=== PATIENT | female | born 1985 | race Caucasian/White ===

== ENCOUNTER 2018-02-04 15:17 | Inpatient (IN) | payer BC ==
[2018-02-04] MEDS ORDERED: Sodium Chloride 0.9% 1,000 ML IV ONE (15:20)
--- NOTE | 2018-02-04 15:33 | C.PDOC ---
History Of Present Illness 32 year old female with PMHx of bipolar disorder is brought to the ED by Dr. Mahoney from the Psychiatry office across the street. As per patient, she took a handful of digoxin and klonopin. Denies any SI/HI. Time Seen by Provider: 02/04/18 15:30 Chief Complaint (Nursing): Substance Abuse History Per: Patient History/Exam Limitations: no limitations Onset/Duration Of Symptoms: Mins Current Symptoms Are (Timing): Still Present Suicide/Self Injury Attempted (Context): None Modifying Factor(s): Other (Klonopin, digoxin ) Associated Symptoms: denies: Suicidal Thoughts, Suicidal Plan Past Medical History Reviewed: Historical Data, Nursing Documentation, Vital Signs Vital Signs: Last Vital Signs Temp 98.4 F 02/04/18 15:28 Pulse 142 H 02/04/18 15:28 Resp 22 02/04/18 15:28 BP 130/47 L 02/04/18 15:28 Pulse Ox 93 L 02/04/18 15:28 - Medical History PMH: Bipolar Disorder Surgical History: No Surg Hx Family History: States: No Known Family Hx - Social History Hx Alcohol Use: No Hx Substance Use: No - Immunization History Hx Tetanus Toxoid Vaccination: No Hx Influenza Vaccination: No Hx Pneumococcal Vaccination: No Review Of Systems Except As Marked, All Systems Reviewed And Found Negative. Constitutional: Positive for: Other (overdose). Negative for: Fever Cardiovascular: Negative for: Chest Pain Respiratory: Negative for: Shortness of Breath Gastrointestinal: Negative for: Nausea, Vomiting, Abdominal Pain, Diarrhea Psych: Negative for: Suicidal ideation Physical Exam - Physical Exam Appears: Non-toxic, Other (verbally abusive with ED staff, aggressive, bizarre affect ) Skin: Warm, Dry, No Rash Head: Normacephalic Eye(s): bilateral: Normal Inspection Cardiovascular: Rhythm Regular, Other (Tachycardic) Respiratory: Normal Breath Sounds, No Rales, No Rhonchi, No Wheezing Gastrointestinal/Abdominal: Soft, No Tenderness Extremity: Bilateral: Atraumatic, Normal Color And Temperature, Normal ROM Neurological/Psych: Other (awake, alert, oriented) Gait: Steady ED Course And Treatment - Laboratory Results Result Diagrams: 02/04/18 15:43 02/04/18 15:43 O2 Sat by Pulse Oximetry: 95 (RA) Pulse Ox Interpretation: Normal - Other Rad CXR X-Ray: Viewed By Me, Read By Radiologist Interpretation: IMPRESSION: Hypoinflation. No focal consolidation. Disposition - Disposition Forms: [facility] (Czech) - Scribe Statement The provider has reviewed the documentation as recorded by the Scribe Jerica Rodriguez All medical record entries made by the Scribe were at my direction and person ally dictated by me. I have reviewed the chart and agree that the record accurately reflects my personal performance of the history, physical exam, medical decision making, and the department course for this patient. I have also personally directed, reviewed, and agree with the discharge instructions and disposition.
[2018-02-04 15:49] LABS: BASO % 0.5 % (0.0-2.0); EOS # 0.3 K/uL (0.0-0.7); EOS % 3.7 % (0.0-4.0); HEMOGLOBIN 12.2 g/dL (11.0-16.0); LYMPH # 2.4 K/uL (1.0-4.3); LYMPH % 28.6 % (20.0-40.0); MEAN CORPUSCULAR HEMOGLOBIN 28.5 pg (27.0-31.0); MEAN CORPUSCULAR HGB CONC 33.5 g/dL (33.0-37.0); MEAN PLATELET VOLUME 8.5 fL (7.2-11.7); MONO # 0.6 K/uL (0.0-0.8); MONO % 7.7 % (0.0-10.0); NEUT # 4.9 K/uL (1.8-7.0); NEUT % 59.5 % (50.0-75.0); NRBC % 0.1 % (0.0-2.0); RBC 4.28 Mil/uL (3.80-5.20); RED CELL DISTRIBUTION WIDTH 13.5 % (11.5-14.5); WHITE BLOOD COUNT 8.3 K/uL (4.8-10.8)
[2018-02-04] MEDS ORDERED: Sodium Chloride 0.9% 1,000 ML ONE (15:59)
[2018-02-04 16:06] LABS: ALB/GLOB RATIO 1.4 (1.0-2.1); ALBUMIN 4.5 g/dL (3.5-5.0); ALT/SGPT 29 U/L (9-52); AST/SGOT 46 U/L (14-36); BLOOD UREA NITROGEN 4 mg/dL (7-17); CALCIUM 9.6 mg/dl (8.6-10.4); GFR NON-AFRICAN AMERICAN > 60
--- NOTE | 2018-02-04 16:08 | RAD ---
HISTORY: SOB COMPARISON: None available. TECHNIQUE: Chest, one view. FINDINGS: Examination limited by habitus and hypoinflation. LUNGS: No focal consolidation. Please note that chest x-ray has limited sensitivity for the detection of pulmonary masses. PLEURA: No significant pleural effusion identified. No definite pneumothorax . CARDIOVASCULAR: The cardiomediastinal silhouette appears within normal limits of size. No significant atherosclerotic calcification present. OSSEOUS STRUCTURES: No acute osseous abnormality identified. VISUALIZED UPPER ABDOMEN: Unremarkable. OTHER FINDINGS: None. IMPRESSION: Hypoinflation. No focal consolidation.
[2018-02-04 16:18] LABS: B-TYPE NATRIURETIC PEPTIDE 45.2 pg/mL (0-450)
[2018-02-04 16:32] LABS: SQUAMOUS EPITHIAL 4 /hpf (0-5); URINE BILIRUBIN NEGATIVE (NEGATIVE); URINE BLOOD NEGATIVE (NEGATIVE); URINE CLARITY Clear (Clear); URINE COLOR Straw (YELLOW); URINE GLUCOSE (UA) NORMAL (Normal); URINE LEUKOCYTE ESTERASE NEG Leu/uL (Negative); URINE PROTEIN NEGATIVE (NEGATIVE); URINE UROBILINOGEN NORMAL mg/dL (0.2-1.0)
[2018-02-04 16:40] LABS: HCG,QUALITATIVE URINE NEGATIVE (NEGATIVE)
[2018-02-04 17:21] LABS: BARBITURATES, UR NEGATIVE (NEGATIVE); OPIATES, UR NEGATIVE (NEGATIVE); PHENCYCLIDINE, UR NEGATIVE (NEGATIVE)
[2018-02-04 17:28] LABS: BENZODIAZEPINES, UR POSITIVE (NEGATIVE)
--- NOTE | 2018-02-04 19:03 | C.PDOC ---
History Of Present Illness 32 year old female with PMHx of bipolar disorder is brought to the ED by Dr. Mahoney from the Psychiatry office across the street. As per patient, she took a handful of digoxin and klonopin. Denies any SI/HI. Time Seen by Provider: 02/04/18 15:30 Chief Complaint (Nursing): Substance Abuse History Per: Patient History/Exam Limitations: no limitations Onset/Duration Of Symptoms: Hrs Current Symptoms Are (Timing): Still Present Suicide/Self Injury Attempted (Context): None Modifying Factor(s): Other (Digoxin, klonopin ) Associated Symptoms: denies: Suicidal Thoughts, Suicidal Plan Past Medical History Reviewed: Historical Data, Nursing Documentation, Vital Signs Vital Signs: Last Vital Signs Temp 98.4 F 02/04/18 15:28 Pulse 134 H 02/04/18 18:15 Resp 24 02/04/18 18:15 BP 106/78 02/04/18 18:15 Pulse Ox 95 02/04/18 19:00 - Medical History PMH: Bipolar Disorder - Social History Hx Alcohol Use: No Hx Substance Use: No - Immunization History Hx Tetanus Toxoid Vaccination: No Hx Influenza Vaccination: No Hx Pneumococcal Vaccination: No Review Of Systems Except As Marked, All Systems Reviewed And Found Negative. Constitutional: Positive for: Other (overdose). Negative for: Fever, Chills Cardiovascular: Negative for: Chest Pain Respiratory: Negative for: Shortness of Breath Gastrointestinal: Negative for: Nausea, Vomiting, Abdominal Pain, Diarrhea Psych: Negative for: Depression, Suicidal ideation Physical Exam - Physical Exam Additional Physical Exam Comments: Appears: Non-toxic, Other (verbally abusive with ED staff, aggressive, bizarre affect ) Skin: Warm, Dry, No Rash Head: Normacephalic Eye(s): bilateral: Normal Inspection Cardiovascular: Rhythm Regular, Other (Tachycardic) Respiratory: Normal Breath Sounds, No Rales, No Rhonchi, No Wheezing Gastrointestinal/Abdominal: Soft, No Tenderness Extremity: Bilateral: Atraumatic, Normal Color And Temperature, Normal ROM Neurological/Psych: Other (awake, alert, oriented) Gait: Steady ED Course And Treatment - Laboratory Results Result Diagrams: 02/05/18 06:55 02/05/18 06:55 Lab Interpretation: Abnormal (tox + THC/Benzo's (prob Klonopin), Dig level 3.9 (0.2-2.0), VPA 198 H) ECG: Interpreted By Me ECG Rhythm: Sinus Tachycardia Rate From EC (repeat ST 131, no inverted ST to suggest Dig tox ) O2 Sat by Pulse Oximetry: 95 (RA) Pulse Ox Interpretation: Normal - Radiology CXR: Interpreted by Me CXR Interpretation: Yes: No Acute Disease - Other Rad CXR X-Ray: Interpreted by Me (nl) Reevaluation Time: 19:03 Reassessment Condition: Improved (occ nauseated, verbally abusive with staff, throwing items (drink cup) demanding, argumentative) - Physician Consult Information Outcome Of Conversation: 1899: d/w Dr. Valles- Medicine [facility]- ok to adm to ICU. 1899: d/w ICU, Dr. Pardo, ok to admit Critical Care Time - Critical Care Note Total Time (in mins): 90 Documented critical care: time excludes all time spent performing seperately billable procedures. Medical Decision Making Medical Decision Making: Plan - EKG - Bloodwork - IV fluids - 1:1 observation 1899: Mother at bedside intentional Benzo (Klonopin) and Dig (got from elderly family member) with elevated Dig level 3.9 but without bradycardia nor EKG changes c/w toxicity ICU obs. d/w Poison Control- defer Digibind for level <5 and no acute EKG changes/hyperkalemia repeat labs pending 2200 hrs. VPA overdose- supportive care Baseline Bipolar/agressive/personality disorder, worstening as Klonopin is wearing off Ativan IV to avoid w/d tachycardia and seizures Psych Sedate as required Ativan/Geodon to avoid benzo w/d and superimposed tachycardia Consider transfer to [facility] when medically cleared. d/w Dr. Mahoney- pt's outpatient psychiatrist, for further background info PRN Disposition Doctor Will See Patient In The: Hospital Counseled Patient/Family Regarding: Studies Performed, Diagnosis - Disposition Disposition: HOSPITALIZED Disposition Time: 19:06 Condition: GOOD - Clinical Impression Clinical Impression: Benzodiazepine overdose, Digoxin overdose, Suicide attempt - Scribe Statement The provider has reviewed the documentation as recorded by the Scribmichaelle Rodriguez All medical record entries made by the Scribe were at my direction and personally dictated by me. I have reviewed the chart and agree that the record accurately reflects my personal performance of the history, physical exam, medical decision making, and the department course for this patient. I have also personally directed, reviewed, and agree with the discharge instructions and disposition.
--- NOTE | 2018-02-04 20:55 | CP.PCM.CON ---
History of Present Illness - History of Present Illness History of Present Illness: CCM 89 yo female with hx Bipolar /personality disorder sent from Psych office b/o suicdal attempt taking handful digoxin / Valproic acid/ Klonopin. Pt vomited in ED. Denied pain /sob /nausea when seen. Found with elevated Dig level 3.9 and poison control said no digibind. ROS- as noted All- Metoclopramide Social- denied tob/ etoh/ drugs Meds- reviewed FH- Unknown Awake but appears sleepy, responsive Perrl Neck- no jvd lungs- bilat bs Heart-rr aBd- obese, bs+, soft, nontender Ext- no edema, ontender Neuro- nonfocal Labs, EKG's-reviewed A&P s/p Suicide Attempt Mixed OD- Dig / VPA Bipolar Personality Disorder Admit to ICU cont 1:1 observation Hydration maintain optimal lytes repeat dig & VPA levels if agitated -->ativan monitor DVT prophylaxis Psych f/u Critical care time spent 40 min Past Patient History - Past Social History Smoking Status: Never Smoked - PSYCHIATRIC Hx Substance Use: No Meds Allergies/Adverse Reactions: Allergies Allergy/AdvReac Type Severity Reaction Status Date / Time metoclopramide [From Reglan] Allergy Verified 02/04/18 15:28 Results - Vital Signs Recent Vital Signs: Last Vital Signs Temp 98.4 F 02/04/18 15:28 Pulse 134 H 02/04/18 18:15 Resp 24 02/04/18 18:15 BP 106/78 02/04/18 18:15 Pulse Ox 95 02/04/18 19:51 - Labs Result Diagrams: 02/04/18 15:43 02/04/18 15:43 Labs: Laboratory Results - last 24 hr 02/04/18 02/04/18 02/04/18 15:43 15:43 15:43 WBC 8.3 RBC 4.28 Hgb 12.2 Hct 36.4 MCV 85.0 MCH 28.5 MCHC 33.5 RDW 13.5 Plt Count 257 MPV 8.5 Neut % (Auto) 59.5 Lymph % (Auto) 28.6 [place] % (Auto) 7.7 Eos % (Auto) 3.7 Baso % (Auto) 0.5 Neut # (Auto) 4.9 Lymph # (Auto) 2.4 [place] # (Auto) 0.6 Eos # (Auto) 0.3 Baso # (Auto) 0.0 PT 11.0 INR 1.0 APTT 34 Sodium 137 Potassium 4.6 Chloride 98 Carbon Dioxide 23 Anion Gap 21 H BUN 4 L Creatinine 0.6 L Est GFR ( Amer) > 60 Est GFR (Non-Af Amer) > 60 Random Glucose 175 H Calcium 9.6 Total Bilirubin 0.4 AST 46 H ALT 29 Alkaline Phosphatase 81 Ammonia Troponin I 0.0880 NT-Pro-B Natriuret Pep 45.2 Total Protein 7.7 Albumin 4.5 Globulin 3.3 Albumin/Globulin Ratio 1.4 Urine Color Urine Clarity Urine pH Ur Specific [place] Urine Protein Urine Glucose (UA) Urine Ketones Urine Blood Urine Nitrate Urine Bilirubin Urine Urobilinogen Ur Leukocyte Esterase Urine WBC (Auto) Urine RBC (Auto) Ur Squamous Epith Cells Urine HCG, Qual Digoxin Urine Opiates Screen Urine Methadone Screen Ur Barbiturates Screen Valproic Acid Ur Phencyclidine Scrn Ur Amphetamines Screen U Benzodiazepines Scrn U Oth Cocaine Metabols U Cannabinoids Screen Alcohol, Quantitative 02/04/18 02/04/18 02/04/18 15:43 15:43 15:49 WBC RBC Hgb Hct MCV MCH MCHC RDW Plt Count MPV Neut % (Auto) Lymph % (Auto) [place] % (Auto) Eos % (Auto) Baso % (Auto) Neut # (Auto) Lymph # (Auto) [place] # (Auto) Eos # (Auto) Baso # (Auto) PT INR APTT Sodium Potassium Chloride Carbon Dioxide Anion Gap BUN Creatinine Est GFR ( Amer) Est GFR (Non-Af Amer) Random Glucose Calcium Total Bilirubin AST ALT Alkaline Phosphatase Ammonia < 9 L Troponin I NT-Pro-B Natriuret Pep Total Protein Albumin Globulin Albumin/Globulin Ratio Urine Color Urine Clarity Urine pH Ur Specific [place] Urine Protein Urine Glucose (UA) Urine Ketones Urine Blood Urine Nitrate Urine Bilirubin Urine Urobilinogen Ur Leukocyte Esterase Urine WBC (Auto) Urine RBC (Auto) Ur Squamous Epith Cells Urine HCG, Qual Digoxin 3.9 H* Urine Opiates Screen Urine Methadone Screen Ur Barbiturates Screen Valproic Acid Ur Phencyclidine Scrn Ur Amphetamines Screen U Benzodiazepines Scrn U Oth Cocaine Metabols U Cannabinoids Screen Alcohol, Quantitative < 10 02/04/18 02/04/18 02/04/18 15:50 16:17 16:59 WBC RBC Hgb Hct MCV MCH MCHC RDW Plt Count MPV Neut % (Auto) Lymph % (Auto) [place] % (Auto) Eos % (Auto) Baso % (Auto) Neut # (Auto) Lymph # (Auto) [place] # (Auto) Eos # (Auto) Baso # (Auto) PT INR APTT Sodium Potassium Chloride Carbon Dioxide Anion Gap BUN Creatinine Est GFR ( Amer) Est GFR (Non-Af Amer) Random Glucose Calcium Total Bilirubin AST ALT Alkaline Phosphatase Ammonia Troponin I NT-Pro-B Natriuret Pep Total Protein Albumin Globulin Albumin/Globulin Ratio Urine Color Straw Urine Clarity Clear Urine pH 5.0 Ur Specific [place] 1.012 Urine Protein Negative Urine Glucose (UA) Normal Urine Ketones 1+ H Urine Blood Negative Urine Nitrate Negative Urine Bilirubin Negative Urine Urobilinogen Normal Ur Leukocyte Esterase Neg Urine WBC (Auto) < 1 Urine RBC (Auto) 1 Ur Squamous Epith Cells 4 Urine HCG, Qual Negative Digoxin Urine Opiates Screen Negative Urine Methadone Screen Negative Ur Barbiturates Screen Negative Valproic Acid 190.8 H Ur Phencyclidine Scrn Negative Ur Amphetamines Screen Negative U Benzodiazepines Scrn Positive U Oth Cocaine Metabols Negative U Cannabinoids Screen Positive H Alcohol, Quantitative Assessment & Plan (1) Digoxin overdose Status: Acute (2) Suicide attempt Status: Acute (3) Valproic acid toxicity Status: Acute (4) Tachycardia Status: Acute (5) Bipolar 1 disorder Status: Chronic
[2018-02-04] MEDS: Sodium Chloride 0.9% 1,000 ML IV SCH (21:40)
[2018-02-04 22:44] LABS: ACETAMINOPHEN < 10.0 ug/mL (10.0-30.0); SALICYLATE < 1.0 mg/dL 1; VALPROIC ACID 156.4 ug/mL (50.0-100.0)
[2018-02-04 22:45] LABS: BLOOD UREA NITROGEN 3 mg/dL (7-17); CALCIUM 9.3 mg/dl (8.6-10.4); GFR NON-AFRICAN AMERICAN > 60
[2018-02-05] MEDS: Sodium Chloride 0.9% 1,000 ML IV SCH ×4 (03:55→17:38)
[2018-02-05 07:07] LABS: BASO % 0.5 % (0.0-2.0); EOS # 0.2 K/uL (0.0-0.7); EOS % 3.5 % (0.0-4.0); HEMOGLOBIN 11.7 g/dL (11.0-16.0); LYMPH # 1.6 K/uL (1.0-4.3); LYMPH % 28.4 % (20.0-40.0); MEAN CELL VOLUME 85.3 fL (81.0-99.0); MEAN CORPUSCULAR HEMOGLOBIN 28.4 pg (27.0-31.0); MEAN CORPUSCULAR HGB CONC 33.3 g/dL (33.0-37.0); MEAN PLATELET VOLUME 8.5 fL (7.2-11.7); MONO # 0.3 K/uL (0.0-0.8); MONO % 5.6 % (0.0-10.0); NEUT # 3.6 K/uL (1.8-7.0); RBC 4.12 Mil/uL (3.80-5.20); RED CELL DISTRIBUTION WIDTH 13.6 % (11.5-14.5); WHITE BLOOD COUNT 5.8 K/uL (4.8-10.8)
[2018-02-05 07:51] LABS: ALB/GLOB RATIO 1.3 (1.0-2.1); ALBUMIN 4.1 g/dL (3.5-5.0); ALT/SGPT 28 U/L (9-52); AST/SGOT 32 U/L (14-36); BLOOD UREA NITROGEN 5 mg/dL (7-17); CALCIUM 9.3 mg/dl (8.6-10.4); GFR NON-AFRICAN AMERICAN > 60
--- NOTE | 2018-02-05 10:58 | CARD ---
APPROVED REPORT Date of service: 02/04/2018 EKG Measurement Heart [id number] <Conclusion> Sinus tachycardia T wave abnormality, consider anterior ischemia Abnormal ECG
[2018-02-05 13:49] LABS: VALPROIC ACID 83.1 ug/mL (50.0-100.0)
--- NOTE | 2018-02-05 14:07 | CP.CCUPN ---
<Leanna Hall - Last Filed: 02/05/18 14:05> CCU Subjective - Physician Review Subjective (Free Text): 02/05/18 14:05 PGY-1 Critical Care Progress Note for Dr. Valero's service Patient seen and examined at bedside. Patient asked to speak with Dr. Mahoney. Patient asked why she did not from overdosing on digoxin. Patient is very combative and not participating in medical interview. 12 point ROS limited. Critical Care Time Spent (in minutes): 35 CCU Objective - Vital Signs / Intake & Output Vital Signs (Last 4 hours): Vital Signs Temp Pulse Resp BP Pulse Ox 02/05/18 12:20 111 H 38 H 90 L 02/05/18 12:10 109 H 39 H 91 L 02/05/18 12:03 111 H 37 H 130/80 91 L 02/05/18 12:00 111 H 35 H 91 L 02/05/18 11:50 115 H 42 H 88 L 02/05/18 11:40 114 H 33 H 87 L 02/05/18 11:30 106 H 32 H 82 L 02/05/18 11:29 98 F 02/05/18 11:20 105 H 25 H 88 L 02/05/18 11:10 114 H 32 H 89 L 02/05/18 11:00 112 H 34 H 92 L 02/05/18 10:50 107 H 35 H 91 L 02/05/18 10:40 110 H 36 H 97 02/05/18 10:30 114 H 43 H 02/05/18 10:24 115 H 28 H 135/86 96 02/05/18 10:20 115 H 36 H 90 L 02/05/18 10:10 115 H 45 H 88 L Intake and Output (Last 8hrs): Intake & Output 02/04/18 02/05/18 02/05/18 22:59 06:59 14:59 Intake Total 322 275 3124 Output Total 350 1150 Balance -200 -550 1050 Weight 170 lb Intake: Intake, IV Amount [phone] Left Antecubital [phone] Output: Urine 350 1150 Urine, Voided 350 1150 Other: Voiding Method Bedpan # Voids Urine, Voided 1 - Physical Exam Physical Exam Limitations: Positive for: Uncooperative Head: Positive for: Atraumatic, Normocephalic Pupils: Positive for: PERRL Extroacular Muscles: Positive for: EOMI Conjunctiva: Positive for: Normal Mouth: Positive for: Moist Mucous Membranes Respiratory/Chest: Positive for: Clear to Auscultation, Good Air Exchange. Negative for: Respiratory Distress, Accessory Muscle Use, Wheezes, Decreased Breath Sounds Cardiovascular: Positive for: Normal S1, S2, Tachycardic. Negative for: Murmurs Abdomen: Positive for: Normal Bowel Sounds. Negative for: Tenderness, Distention, Peritoneal Signs Upper Extremity: Positive for: Normal Inspection. Negative for: Cyanosis, Edema - Medications Active Medications: Active Medications Generic Name Dose Route Start Last Admin Trade Name Freq PRN Reason Stop Dose Admin Heparin Sodium (Porcine) 5,000 units 02/04/18 22:00 02/05/18 06:40 Heparin SC 5,000 units Q8 VERONICA Administration Sodium Chloride 1,000 mls @ 150 mls/hr 02/04/18 21:15 02/05/18 12:43 Sodium Chloride 0.9% IV 150 mls/hr [id number] VERONICA Administration - Patient Studies Lab Studies: Lab Studies 02/05/18 02/05/18 02/05/18 Range/Units 13:11 06:55 06:55 WBC 5.8 (4.8-10.8) K/uL RBC 4.12 (3.80-5.20) Mil/uL Hgb 11.7 (11.0-16.0) g/dL Hct 35.2 (34.0-47.0) % MCV 85.3 (81.0-99.0) fL MCH 28.4 (27.0-31.0) pg MCHC 33.3 (33.0-37.0) g/dL RDW 13.6 (11.5-14.5) % Plt Count 246 (130-400) K/uL MPV 8.5 (7.2-11.7) fL Neut % (Auto) 62.0 (50.0-75.0) % Lymph % (Auto) 28.4 (20.0-40.0) % [place] % (Auto) 5.6 (0.0-10.0) % Eos % (Auto) 3.5 (0.0-4.0) % Baso % (Auto) 0.5 (0.0-2.0) % Neut # (Auto) 3.6 (1.8-7.0) K/uL Lymph # (Auto) 1.6 (1.0-4.3) K/uL [place] # (Auto) 0.3 (0.0-0.8) K/uL Eos # (Auto) 0.2 (0.0-0.7) K/uL Baso # (Auto) 0.0 (0.0-0.2) K/uL PT (9.7-12.2) SECONDS INR APTT (21-34) SECONDS Sodium 137 (132-148) mmol/L Potassium 4.6 (3.6-5.2) mmol/L Chloride 99 (98-107) mmol/L Carbon Dioxide 26 (22-30) mmol/L Anion Gap 16 (10-20) BUN 5 L (7-17) mg/dL Creatinine 0.6 L (0.7-1.2) mg/dL Est GFR ( Amer) > 60 Est GFR (Non-Af Amer) > 60 Random Glucose 145 H (65-105) mg/dL Calcium 9.3 (8.6-10.4) mg/dl Total Bilirubin 0.4 (0.2-1.3) mg/dL AST 32 (14-36) U/L ALT 28 (9-52) U/L Alkaline Phosphatase 66 (38-126) U/L Ammonia (9-33) umol/L Troponin I (0.00-0.120) ng/mL NT-Pro-B Natriuret Pep (0-450) pg/mL Total Protein 7.2 (6.3-8.3) g/dL Albumin 4.1 (3.5-5.0) g/dL Globulin 3.1 (2.2-3.9) gm/dL Albumin/Globulin Ratio 1.3 (1.0-2.1) Urine Color (YELLOW) Urine Clarity (Clear) Urine pH (5.0-8.0) Ur Specific [place] (1.003-1.030) Urine Protein (NEGATIVE) mg/dL Urine Glucose (UA) (Normal) mg/dL Urine Ketones (NEGATIVE) mg/dL Urine Blood (NEGATIVE) Urine Nitrate (NEGATIVE) Urine Bilirubin (NEGATIVE) Urine Urobilinogen (0.2-1.0) mg/dL Ur Leukocyte Esterase (Negative) Shade/uL Urine WBC (Auto) (0-5) /hpf Urine RBC (Auto) (0-3) /hpf Ur Squamous Epith Cells (0-5) /hpf Urine HCG, Qual (NEGATIVE) Digoxin 2.7 H* (0.8-2.0) ng/mL Salicylates mg/dL 1 Urine Opiates Screen (NEGATIVE) Urine Methadone Screen (NEGATIVE) Acetaminophen (10.0-30.0) ug/mL Ur Barbiturates Screen (NEGATIVE) Valproic Acid 83.1 (50.0-100.0) ug/mL Ur Phencyclidine Scrn (NEGATIVE) Ur Amphetamines Screen (NEGATIVE) U Benzodiazepines Scrn (NEGATIVE) U Oth Cocaine Metabols (NEGATIVE) U Cannabinoids Screen (NEGATIVE) Alcohol, Quantitative (0-10) mg/dl 02/04/18 02/04/18 02/04/18 Range/Units 21:47 21:47 21:47 WBC (4.8-10.8) K/uL RBC (3.80-5.20) Mil/uL Hgb (11.0-16.0) g/dL Hct (34.0-47.0) % MCV (81.0-99.0) fL MCH (27.0-31.0) pg MCHC (33.0-37.0) g/dL RDW (11.5-14.5) % Plt Count (130-400) K/uL MPV (7.2-11.7) fL Neut % (Auto) (50.0-75.0) % Lymph % (Auto) (20.0-40.0) % [place] % (Auto) (0.0-10.0) % Eos % (Auto) (0.0-4.0) % Baso % (Auto) (0.0-2.0) % Neut # (Auto) (1.8-7.0) K/uL Lymph # (Auto) (1.0-4.3) K/uL [place] # (Auto) (0.0-0.8) K/uL Eos # (Auto) (0.0-0.7) K/uL Baso # (Auto) (0.0-0.2) K/uL PT (9.7-12.2) SECONDS INR APTT (21-34) SECONDS Sodium 136 (132-148) mmol/L Potassium 4.7 (3.6-5.2) mmol/L Chloride 101 (98-107) mmol/L Carbon Dioxide 22 (22-30) mmol/L Anion Gap 18 (10-20) BUN 3 L (7-17) mg/dL Creatinine 0.6 L (0.7-1.2) mg/dL Est GFR ( Amer) > 60 Est GFR (Non-Af Amer) > 60 Random Glucose 150 H (65-105) mg/dL Calcium 9.3 (8.6-10.4) mg/dl Total Bilirubin (0.2-1.3) mg/dL AST (14-36) U/L ALT (9-52) U/L Alkaline Phosphatase (38-126) U/L Ammonia < 9 L (9-33) umol/L Troponin I (0.00-0.120) ng/mL NT-Pro-B Natriuret Pep (0-450) pg/mL Total Protein (6.3-8.3) g/dL Albumin (3.5-5.0) g/dL Globulin (2.2-3.9) gm/dL Albumin/Globulin Ratio (1.0-2.1) Urine Color (YELLOW) Urine Clarity (Clear) Urine pH (5.0-8.0) Ur Specific [place] (1.003-1.030) Urine Protein (NEGATIVE) mg/dL Urine Glucose (UA) (Normal) mg/dL Urine Ketones (NEGATIVE) mg/dL Urine Blood (NEGATIVE) Urine Nitrate (NEGATIVE) Urine Bilirubin (NEGATIVE) Urine Urobilinogen (0.2-1.0) mg/dL Ur Leukocyte Esterase (Negative) Shade/uL Urine WBC (Auto) (0-5) /hpf Urine RBC (Auto) (0-3) /hpf Ur Squamous Epith Cells (0-5) /hpf Urine HCG, Qual (NEGATIVE) Digoxin 3.7 H* (0.8-2.0) ng/mL Salicylates < 1.0 mg/dL 1 Urine Opiates Screen (NEGATIVE) Urine Methadone Screen (NEGATIVE) Acetaminophen < 10.0 L (10.0-30.0) ug/mL Ur Barbiturates Screen (NEGATIVE) Valproic Acid 156.4 H (50.0-100.0) ug/mL Ur Phencyclidine Scrn (NEGATIVE) Ur Amphetamines Screen (NEGATIVE) U Benzodiazepines Scrn (NEGATIVE) U Oth Cocaine Metabols (NEGATIVE) U Cannabinoids Screen (NEGATIVE) Alcohol, Quantitative (0-10) mg/dl 02/04/18 02/04/18 02/04/18 Range/Units 16:59 16:17 15:50 WBC (4.8-10.8) K/uL RBC (3.80-5.20) Mil/uL Hgb (11.0-16.0) g/dL Hct (34.0-47.0) % MCV (81.0-99.0) fL MCH (27.0-31.0) pg MCHC (33.0-37.0) g/dL RDW (11.5-14.5) % Plt Count (130-400) K/uL MPV (7.2-11.7) fL Neut % (Auto) (50.0-75.0) % Lymph % (Auto) (20.0-40.0) % [place] % (Auto) (0.0-10.0) % Eos % (Auto) (0.0-4.0) % Baso % (Auto) (0.0-2.0) % Neut # (Auto) (1.8-7.0) K/uL Lymph # (Auto) (1.0-4.3) K/uL [place] # (Auto) (0.0-0.8) K/uL Eos # (Auto) (0.0-0.7) K/uL Baso # (Auto) (0.0-0.2) K/uL PT (9.7-12.2) SECONDS INR APTT (21-34) SECONDS Sodium (132-148) mmol/L Potassium (3.6-5.2) mmol/L Chloride (98-107) mmol/L Carbon Dioxide (22-30) mmol/L Anion Gap (10-20) BUN (7-17) mg/dL Creatinine (0.7-1.2) mg/dL Est GFR ( Amer) Est GFR (Non-Af Amer) Random Glucose (65-105) mg/dL Calcium (8.6-10.4) mg/dl Total Bilirubin (0.2-1.3) mg/dL AST (14-36) U/L ALT (9-52) U/L Alkaline Phosphatase (38-126) U/L Ammonia (9-33) umol/L Troponin I (0.00-0.120) ng/mL NT-Pro-B Natriuret Pep (0-450) pg/mL Total Protein (6.3-8.3) g/dL Albumin (3.5-5.0) g/dL Globulin (2.2-3.9) gm/dL Albumin/Globulin Ratio (1.0-2.1) Urine Color Straw (YELLOW) Urine Clarity Clear (Clear) Urine pH 5.0 (5.0-8.0) Ur Specific [place] 1.012 (1.003-1.030) Urine Protein Negative (NEGATIVE) mg/dL Urine Glucose (UA) Normal (Normal) mg/dL Urine Ketones 1+ H (NEGATIVE) mg/dL Urine Blood Negative (NEGATIVE) Urine Nitrate Negative (NEGATIVE) Urine Bilirubin Negative (NEGATIVE) Urine Urobilinogen Normal (0.2-1.0) mg/dL Ur Leukocyte Esterase Neg (Negative) Shade/uL Urine WBC (Auto) < 1 (0-5) /hpf Urine RBC (Auto) 1 (0-3) /hpf Ur Squamous Epith Cells 4 (0-5) /hpf Urine HCG, Qual Negative (NEGATIVE) Digoxin (0.8-2.0) ng/mL Salicylates mg/dL 1 Urine Opiates Screen Negative (NEGATIVE) Urine Methadone Screen Negative (NEGATIVE) Acetaminophen (10.0-30.0) ug/mL Ur Barbiturates Screen Negative (NEGATIVE) Valproic Acid 190.8 H (50.0-100.0) ug/mL Ur Phencyclidine Scrn Negative (NEGATIVE) Ur Amphetamines Screen Negative (NEGATIVE) U Benzodiazepines Scrn Positive (NEGATIVE) U Oth Cocaine Metabols Negative (NEGATIVE) U Cannabinoids Screen Positive H (NEGATIVE) Alcohol, Quantitative (0-10) mg/dl 02/04/18 02/04/18 02/04/18 Range/Units 15:49 15:43 15:43 WBC (4.8-10.8) K/uL RBC (3.80-5.20) Mil/uL Hgb (11.0-16.0) g/dL Hct (34.0-47.0) % MCV (81.0-99.0) fL MCH (27.0-31.0) pg MCHC (33.0-37.0) g/dL RDW (11.5-14.5) % Plt Count (130-400) K/uL MPV (7.2-11.7) fL Neut % (Auto) (50.0-75.0) % Lymph % (Auto) (20.0-40.0) % [place] % (Auto) (0.0-10.0) % Eos % (Auto) (0.0-4.0) % Baso % (Auto) (0.0-2.0) % Neut # (Auto) (1.8-7.0) K/uL Lymph # (Auto) (1.0-4.3) K/uL [place] # (Auto) (0.0-0.8) K/uL Eos # (Auto) (0.0-0.7) K/uL Baso # (Auto) (0.0-0.2) K/uL PT (9.7-12.2) SECONDS INR APTT (21-34) SECONDS Sodium (132-148) mmol/L Potassium (3.6-5.2) mmol/L Chloride (98-107) mmol/L Carbon Dioxide (22-30) mmol/L Anion Gap (10-20) BUN (7-17) mg/dL Creatinine (0.7-1.2) mg/dL Est GFR ( Amer) Est GFR (Non-Af Amer) Random Glucose (65-105) mg/dL Calcium (8.6-10.4) mg/dl Total Bilirubin (0.2-1.3) mg/dL AST (14-36) U/L ALT (9-52) U/L Alkaline Phosphatase (38-126) U/L Ammonia < 9 L (9-33) umol/L Troponin I (0.00-0.120) ng/mL NT-Pro-B Natriuret Pep (0-450) pg/mL Total Protein (6.3-8.3) g/dL Albumin (3.5-5.0) g/dL Globulin (2.2-3.9) gm/dL Albumin/Globulin Ratio (1.0-2.1) Urine Color (YELLOW) Urine Clarity (Clear) Urine pH (5.0-8.0) Ur Specific [place] (1.003-1.030) Urine Protein (NEGATIVE) mg/dL Urine Glucose (UA) (Normal) mg/dL Urine Ketones (NEGATIVE) mg/dL Urine Blood (NEGATIVE) Urine Nitrate (NEGATIVE) Urine Bilirubin (NEGATIVE) Urine Urobilinogen (0.2-1.0) mg/dL Ur Leukocyte Esterase (Negative) Shade/uL Urine WBC (Auto) (0-5) /hpf Urine RBC (Auto) (0-3) /hpf Ur Squamous Epith Cells (0-5) /hpf Urine HCG, Qual (NEGATIVE) Digoxin 3.9 H* (0.8-2.0) ng/mL Salicylates mg/dL 1 Urine Opiates Screen (NEGATIVE) Urine Methadone Screen (NEGATIVE) Acetaminophen (10.0-30.0) ug/mL Ur Barbiturates Screen (NEGATIVE) Valproic Acid (50.0-100.0) ug/mL Ur Phencyclidine Scrn (NEGATIVE) Ur Amphetamines Screen (NEGATIVE) U Benzodiazepines Scrn (NEGATIVE) U Oth Cocaine Metabols (NEGATIVE) U Cannabinoids Screen (NEGATIVE) Alcohol, Quantitative < 10 (0-10) mg/dl 02/04/18 02/04/18 02/04/18 Range/Units 15:43 15:43 15:43 WBC 8.3 (4.8-10.8) K/uL RBC 4.28 (3.80-5.20) Mil/uL Hgb 12.2 (11.0-16.0) g/dL Hct 36.4 (34.0-47.0) % MCV 85.0 (81.0-99.0) fL MCH 28.5 (27.0-31.0) pg MCHC 33.5 (33.0-37.0) g/dL RDW 13.5 (11.5-14.5) % Plt Count 257 (130-400) K/uL MPV 8.5 (7.2-11.7) fL Neut % (Auto) 59.5 (50.0-75.0) % Lymph % (Auto) 28.6 (20.0-40.0) % [place] % (Auto) 7.7 (0.0-10.0) % Eos % (Auto) 3.7 (0.0-4.0) % Baso % (Auto) 0.5 (0.0-2.0) % Neut # (Auto) 4.9 (1.8-7.0) K/uL Lymph # (Auto) 2.4 (1.0-4.3) K/uL [place] # (Auto) 0.6 (0.0-0.8) K/uL Eos # (Auto) 0.3 (0.0-0.7) K/uL Baso # (Auto) 0.0 (0.0-0.2) K/uL PT 11.0 (9.7-12.2) SECONDS INR 1.0 APTT 34 (21-34) SECONDS Sodium 137 (132-148) mmol/L Potassium 4.6 (3.6-5.2) mmol/L Chloride 98 (98-107) mmol/L Carbon Dioxide 23 (22-30) mmol/L Anion Gap 21 H (10-20) BUN 4 L (7-17) mg/dL Creatinine 0.6 L (0.7-1.2) mg/dL Est GFR ( Amer) > 60 Est GFR (Non-Af Amer) > 60 Random Glucose 175 H (65-105) mg/dL Calcium 9.6 (8.6-10.4) mg/dl Total Bilirubin 0.4 (0.2-1.3) mg/dL AST 46 H (14-36) U/L ALT 29 (9-52) U/L Alkaline Phosphatase 81 (38-126) U/L Ammonia (9-33) umol/L Troponin I 0.0880 (0.00-0.120) ng/mL NT-Pro-B Natriuret Pep 45.2 (0-450) pg/mL Total Protein 7.7 (6.3-8.3) g/dL Albumin 4.5 (3.5-5.0) g/dL Globulin 3.3 (2.2-3.9) gm/dL Albumin/Globulin Ratio 1.4 (1.0-2.1) Urine Color (YELLOW) Urine Clarity (Clear) Urine pH (5.0-8.0) Ur Specific [place] (1.003-1.030) Urine Protein (NEGATIVE) mg/dL Urine Glucose (UA) (Normal) mg/dL Urine Ketones (NEGATIVE) mg/dL Urine Blood (NEGATIVE) Urine Nitrate (NEGATIVE) Urine Bilirubin (NEGATIVE) Urine Urobilinogen (0.2-1.0) mg/dL Ur Leukocyte Esterase (Negative) Shade/uL Urine WBC (Auto) (0-5) /hpf Urine RBC (Auto) (0-3) /hpf Ur Squamous Epith Cells (0-5) /hpf Urine HCG, Qual (NEGATIVE) Digoxin (0.8-2.0) ng/mL Salicylates mg/dL 1 Urine Opiates Screen (NEGATIVE) Urine Methadone Screen (NEGATIVE) Acetaminophen (10.0-30.0) ug/mL Ur Barbiturates Screen (NEGATIVE) Valproic Acid (50.0-100.0) ug/mL Ur Phencyclidine Scrn (NEGATIVE) Ur Amphetamines Screen (NEGATIVE) U Benzodiazepines Scrn (NEGATIVE) U Oth Cocaine Metabols (NEGATIVE) U Cannabinoids Screen (NEGATIVE) Alcohol, Quantitative (0-10) mg/dl Laboratory Results - last 24 hr 02/04/18 02/04/18 02/04/18 15:43 15:43 15:43 WBC 8.3 RBC 4.28 Hgb 12.2 Hct 36.4 MCV 85.0 MCH 28.5 MCHC 33.5 RDW 13.5 Plt Count 257 MPV 8.5 Neut % (Auto) 59.5 Lymph % (Auto) 28.6 [place] % (Auto) 7.7 Eos % (Auto) 3.7 Baso % (Auto) 0.5 Neut # (Auto) 4.9 Lymph # (Auto) 2.4 [place] # (Auto) 0.6 Eos # (Auto) 0.3 Baso # (Auto) 0.0 PT 11.0 INR 1.0 APTT 34 Sodium 137 Potassium 4.6 Chloride 98 Carbon Dioxide 23 Anion Gap 21 H BUN 4 L Creatinine 0.6 L Est GFR ( Amer) > 60 Est GFR (Non-Af Amer) > 60 Random Glucose 175 H Calcium 9.6 Total Bilirubin 0.4 AST 46 H ALT 29 Alkaline Phosphatase 81 Ammonia Troponin I 0.0880 NT-Pro-B Natriuret Pep 45.2 Total Protein 7.7 Albumin 4.5 Globulin 3.3 Albumin/Globulin Ratio 1.4 Urine Color Urine Clarity Urine pH Ur Specific [place] Urine Protein Urine Glucose (UA) Urine Ketones Urine Blood Urine Nitrate Urine Bilirubin Urine Urobilinogen Ur Leukocyte Esterase Urine WBC (Auto) Urine RBC (Auto) Ur Squamous Epith Cells Urine HCG, Qual Digoxin Salicylates Urine Opiates Screen Urine Methadone Screen Acetaminophen Ur Barbiturates Screen Valproic Acid Ur Phencyclidine Scrn Ur Amphetamines Screen U Benzodiazepines Scrn U Oth Cocaine Metabols U Cannabinoids Screen Alcohol, Quantitative 02/04/18 02/04/18 02/04/18 15:43 15:43 15:49 WBC RBC Hgb Hct MCV MCH MCHC RDW Plt Count MPV Neut % (Auto) Lymph % (Auto) [place] % (Auto) Eos % (Auto) Baso % (Auto) Neut # (Auto) Lymph # (Auto) [place] # (Auto) Eos # (Auto) Baso # (Auto) PT INR APTT Sodium Potassium Chloride Carbon Dioxide Anion Gap BUN Creatinine Est GFR ( Amer) Est GFR (Non-Af Amer) Random Glucose Calcium Total Bilirubin AST ALT Alkaline Phosphatase Ammonia < 9 L Troponin I NT-Pro-B Natriuret Pep Total Protein Albumin Globulin Albumin/Globulin Ratio Urine Color Urine Clarity Urine pH Ur Specific [place] Urine Protein Urine Glucose (UA) Urine Ketones Urine Blood Urine Nitrate Urine Bilirubin Urine Urobilinogen Ur Leukocyte Esterase Urine WBC (Auto) Urine RBC (Auto) Ur Squamous Epith Cells Urine HCG, Qual Digoxin 3.9 H* Salicylates Urine Opiates Screen Urine Methadone Screen Acetaminophen Ur Barbiturates Screen Valproic Acid Ur Phencyclidine Scrn Ur Amphetamines Screen U Benzodiazepines Scrn U Oth Cocaine Metabols U Cannabinoids Screen Alcohol, Quantitative < 10 02/04/18 02/04/18 02/04/18 15:50 16:17 16:59 WBC RBC Hgb Hct MCV MCH MCHC RDW Plt Count MPV Neut % (Auto) Lymph % (Auto) [place] % (Auto) Eos % (Auto) Baso % (Auto) Neut # (Auto) Lymph # (Auto) [place] # (Auto) Eos # (Auto) Baso # (Auto) PT INR APTT Sodium Potassium Chloride Carbon Dioxide Anion Gap BUN Creatinine Est GFR ( Amer) Est GFR (Non-Af Amer) Random Glucose Calcium Total Bilirubin AST ALT Alkaline Phosphatase Ammonia Troponin I NT-Pro-B Natriuret Pep Total Protein Albumin Globulin Albumin/Globulin Ratio Urine Color Straw Urine Clarity Clear Urine pH 5.0 Ur Specific [place] 1.012 Urine Protein Negative Urine Glucose (UA) Normal Urine Ketones 1+ H Urine Blood Negative Urine Nitrate Negative Urine Bilirubin Negative Urine Urobilinogen Normal Ur Leukocyte Esterase Neg Urine WBC (Auto) < 1 Urine RBC (Auto) 1 Ur Squamous Epith Cells 4 Urine HCG, Qual Negative Digoxin Salicylates Urine Opiates Screen Negative Urine Methadone Screen Negative Acetaminophen Ur Barbiturates Screen Negative Valproic Acid 190.8 H Ur Phencyclidine Scrn Negative Ur Amphetamines Screen Negative U Benzodiazepines Scrn Positive U Oth Cocaine Metabols Negative U Cannabinoids Screen Positive H Alcohol, Quantitative 02/04/18 02/04/18 02/04/18 21:47 21:47 21:47 WBC RBC Hgb Hct MCV MCH MCHC RDW Plt Count MPV Neut % (Auto) Lymph % (Auto) [place] % (Auto) Eos % (Auto) Baso % (Auto) Neut # (Auto) Lymph # (Auto) [place] # (Auto) Eos # (Auto) Baso # (Auto) PT INR APTT Sodium 136 Potassium 4.7 Chloride 101 Carbon Dioxide 22 Anion Gap 18 BUN 3 L Creatinine 0.6 L Est GFR ( Amer) > 60 Est GFR (Non-Af Amer) > 60 Random Glucose 150 H Calcium 9.3 Total Bilirubin AST ALT Alkaline Phosphatase Ammonia < 9 L Troponin I NT-Pro-B Natriuret Pep Total Protein Albumin Globulin Albumin/Globulin Ratio Urine Color Urine Clarity Urine pH Ur Specific [place] Urine Protein Urine Glucose (UA) Urine Ketones Urine Blood Urine Nitrate Urine Bilirubin Urine Urobilinogen Ur Leukocyte Esterase Urine WBC (Auto) Urine RBC (Auto) Ur Squamous Epith Cells Urine HCG, Qual Digoxin 3.7 H* Salicylates < 1.0 Urine Opiates Screen Urine Methadone Screen Acetaminophen < 10.0 L Ur Barbiturates Screen Valproic Acid 156.4 H Ur Phencyclidine Scrn Ur Amphetamines Screen U Benzodiazepines Scrn U Oth Cocaine Metabols U Cannabinoids Screen Alcohol, Quantitative 02/05/18 02/05/18 02/05/18 06:55 06:55 13:11 WBC 5.8 RBC 4.12 Hgb 11.7 Hct 35.2 MCV 85.3 MCH 28.4 MCHC 33.3 RDW 13.6 Plt Count 246 MPV 8.5 Neut % (Auto) 62.0 Lymph % (Auto) 28.4 [place] % (Auto) 5.6 Eos % (Auto) 3.5 Baso % (Auto) 0.5 Neut # (Auto) 3.6 Lymph # (Auto) 1.6 [place] # (Auto) 0.3 Eos # (Auto) 0.2 Baso # (Auto) 0.0 PT INR APTT Sodium 137 Potassium 4.6 Chloride 99 Carbon Dioxide 26 Anion Gap 16 BUN 5 L Creatinine 0.6 L Est GFR ( Amer) > 60 Est GFR (Non-Af Amer) > 60 Random Glucose 145 H Calcium 9.3 Total Bilirubin 0.4 AST 32 ALT 28 Alkaline Phosphatase 66 Ammonia Troponin I NT-Pro-B Natriuret Pep Total Protein 7.2 Albumin 4.1 Globulin 3.1 Albumin/Globulin Ratio 1.3 Urine Color Urine Clarity Urine pH Ur Specific [place] Urine Protein Urine Glucose (UA) Urine Ketones Urine Blood Urine Nitrate Urine Bilirubin Urine Urobilinogen Ur Leukocyte Esterase Urine WBC (Auto) Urine RBC (Auto) Ur Squamous Epith Cells Urine HCG, Qual Digoxin 2.7 H* Salicylates Urine Opiates Screen Urine Methadone Screen Acetaminophen Ur Barbiturates Screen Valproic Acid 83.1 Ur Phencyclidine Scrn Ur Amphetamines Screen U Benzodiazepines Scrn U Oth Cocaine Metabols U Cannabinoids Screen Alcohol, Quantitative Radiology Impressions: Radiology Impressions Chest X-Ray 02/04/18 15:36 IMPRESSION: Hypoinflation. No focal consolidation. EKG/Cardiology Studies: Cardiology / EKG Studies 02/04/18 15:24 EKG [ELECTROCARDIOGRAM] Stat Comment: Mode Of Transportation: BED Reason For Exam: cp 02/04/18 15:35 ELECTROCARDIOGRAM Stat Comment: Mode Of Transportation: BED Reason For Exam: SOB ELECTROCARDIOGRAM Stat Comment: Mode Of Transportation: PORTABLE Reason For Exam: f/u dig toxicity 02/04/18 18:06 EKG [ELECTROCARDIOGRAM] Stat Comment: Mode Of Transportation: BED Reason For Exam: cp 02/05/18 10:11 EKG [ELECTROCARDIOGRAM] Routine Comment: Mode Of Transportation: Reason For Exam: overdose 02/06/18 21:15 ELECTROCARDIOGRAM DAILY Comment: Mode Of Transportation: PORTABLE Reason For Exam: f/u dig toxicity PERFORMING PHYSICIAN/PROVIDER:: Marcia Valles I 02/07/18 21:15 ELECTROCARDIOGRAM DAILY Comment: Mode Of Transportation: PORTABLE Reason For Exam: f/u dig toxicity PERFORMING PHYSICIAN/PROVIDER:: Marcia Valles I Review of Systems - Review of Systems Systems not reviewed;Unavailable: Uncooperative Critical Care Progress Note - Nutrition Nutrition: Nutrition Category Date Time Status Heart Healthy Diet [DIET] Diets 02/05/18 Breakfast Active Assessment/Plan - Assessment and Plan (Free Text) Assessment: 32 yo female w/ PMH of Bipolar Disorder, Schizoaffective Disorder admitted for attempted overdose with Digoxin and Valproic Acid. Patient has multiple hospitalizations for manic episodes. 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 Dr. Mahoney following patient and recommends involuntary commitment. Neuro: Awake, Alert, Reponsive Pulm: No acute issues CV: Sinus Tachycardia on EKG likely 2/2 Digoxin; Poison control aware of digoxin levels and did not want dig binder; Repeat Digoxin trending down Psych: Combative, AAO x 3; Expresses sucidal ideation asking "Why she is still alive after overdosing on medications?" Further medications as per Dr. Mahoney; Pending [facility] evaluation for involuntary commitment- being coordinated by Dr. Mahoney GI: No acute issues Renal: NS @ 150mls/hr ID: No acute issues DVT ppx: Heparin 5000 units sc q8h GI ppx: Not indicated at this time [facility] PGY-1 [facility] d/w Dr. Valero <Phillip Ramirez M - Last Filed: 02/05/18 17:46> CCU Objective - Vital Signs / Intake & Output Vital Signs (Last 4 hours): Vital Signs Temp Pulse Resp BP Pulse Ox 02/05/18 16:00 97.2 F L 02/05/18 15:50 114 H 13 02/05/18 15:40 109 H 13 02/05/18 15:30 114 H 18 02/05/18 15:20 115 H 18 02/05/18 15:10 89 24 02/05/18 15:00 115 H 26 H 02/05/18 14:50 115 H 22 94 L 02/05/18 14:40 94 H 24 91 L 02/05/18 14:30 114 H 33 H 94 L 02/05/18 14:24 116 H 33 H 142/83 93 L 02/05/18 14:20 114 H 32 H 93 L 02/05/18 14:10 117 H 38 H 93 L 02/05/18 14:00 119 H 37 H 93 L 02/05/18 13:50 114 H 35 H 95 Intake and Output (Last 8hrs): Intake & Output 02/05/18 02/05/18 02/05/18 06:59 14:59 22:59 Intake Total 600 1200 390 Output Total 1150 Balance -550 1200 390 Intake: Intake, IV Amount 600 1200 150 Left Antecubital 600 1200 150 Oral 240 Output: Urine 1150 Urine, Voided 1150 Other: # Voids Urine, Voided 1 1 # Bowel Movements 1 - Medications Active Medications: Active Medications Generic Name Dose Route Start Last Admin Trade Name Freq PRN Reason Stop Dose Admin Benztropine Mesylate 2 mg 02/05/18 14:24 Cogentin PO Q6 PRN Extra Pyramidal Symptoms Clonazepam 1 mg 02/05/18 18:00 Klonopin PO TID [facility] Divalproex Sodium 500 mg 02/05/18 18:[address] PO BID [facility] Haloperidol 5 mg 02/05/18 14:24 Haldol PO Q8 PRN Moderate Agitation Haloperidol Lactate 5 mg 02/05/18 14:24 Haldol IM Q8 PRN Moderate Agitation Heparin Sodium (Porcine) 5,000 units 02/04/18 22:00 02/05/18 15:18 Heparin SC Not Given Q8 [facility] Sodium Chloride 1,000 mls @ 150 mls/hr 02/04/18 21:15 02/05/18 17:38 Sodium Chloride 0.9% IV Not Given .[id number] [facility] Olanzapine 10 mg 02/05/18 18:00 Zyprexa PO BID [facility] - Patient Studies Lab Studies: Lab Studies 02/05/18 02/05/18 02/05/18 Range/Units 13:11 06:55 06:55 WBC 5.8 (4.8-10.8) K/uL RBC 4.12 (3.80-5.20) Mil/uL Hgb 11.7 (11.0-16.0) g/dL Hct 35.2 (34.0-47.0) % MCV 85.3 (81.0-99.0) fL MCH 28.4 (27.0-31.0) pg MCHC 33.3 (33.0-37.0) g/dL RDW 13.6 (11.5-14.5) % Plt Count 246 (130-400) K/uL MPV 8.5 (7.2-11.7) fL Neut % (Auto) 62.0 (50.0-75.0) % Lymph % (Auto) 28.4 (20.0-40.0) % [place] % (Auto) 5.6 (0.0-10.0) % Eos % (Auto) 3.5 (0.0-4.0) % Baso % (Auto) 0.5 (0.0-2.0) % Neut # (Auto) 3.6 (1.8-7.0) K/uL Lymph # (Auto) 1.6 (1.0-4.3) K/uL [place] # (Auto) 0.3 (0.0-0.8) K/uL Eos # (Auto) 0.2 (0.0-0.7) K/uL Baso # (Auto) 0.0 (0.0-0.2) K/uL Sodium 137 (132-148) mmol/L Potassium 4.6 (3.6-5.2) mmol/L Chloride 99 (98-107) mmol/L Carbon Dioxide 26 (22-30) mmol/L Anion Gap 16 (10-20) BUN 5 L (7-17) mg/dL Creatinine 0.6 L (0.7-1.2) mg/dL Est GFR ( Amer) > 60 Est GFR (Non-Af Amer) > 60 Random Glucose 145 H (65-105) mg/dL Calcium 9.3 (8.6-10.4) mg/dl Total Bilirubin 0.4 (0.2-1.3) mg/dL AST 32 (14-36) U/L ALT 28 (9-52) U/L Alkaline Phosphatase 66 (38-126) U/L Ammonia (9-33) umol/L Total Protein 7.2 (6.3-8.3) g/dL Albumin 4.1 (3.5-5.0) g/dL Globulin 3.1 (2.2-3.9) gm/dL Albumin/Globulin Ratio 1.3 (1.0-2.1) Digoxin 2.7 H* (0.8-2.0) ng/mL Salicylates mg/dL 1 Acetaminophen (10.0-30.0) ug/mL Valproic Acid 83.1 (50.0-100.0) ug/mL 02/04/18 02/04/18 02/04/18 Range/Units 21:47 21:47 21:47 WBC (4.8-10.8) K/uL RBC (3.80-5.20) Mil/uL Hgb (11.0-16.0) g/dL Hct (34.0-47.0) % MCV (81.0-99.0) fL MCH (27.0-31.0) pg MCHC (33.0-37.0) g/dL RDW (11.5-14.5) % Plt Count (130-400) K/uL MPV (7.2-11.7) fL Neut % (Auto) (50.0-75.0) % Lymph % (Auto) (20.0-40.0) % [place] % (Auto) (0.0-10.0) % Eos % (Auto) (0.0-4.0) % Baso % (Auto) (0.0-2.0) % Neut # (Auto) (1.8-7.0) K/uL Lymph # (Auto) (1.0-4.3) K/uL [place] # (Auto) (0.0-0.8) K/uL Eos # (Auto) (0.0-0.7) K/uL Baso # (Auto) (0.0-0.2) K/uL Sodium 136 (132-148) mmol/L Potassium 4.7 (3.6-5.2) mmol/L Chloride 101 (98-107) mmol/L Carbon Dioxide 22 (22-30) mmol/L Anion Gap 18 (10-20) BUN 3 L (7-17) mg/dL Creatinine 0.6 L (0.7-1.2) mg/dL Est GFR ( Amer) > 60 Est GFR (Non-Af Amer) > 60 Random Glucose 150 H (65-105) mg/dL Calcium 9.3 (8.6-10.4) mg/dl Total Bilirubin (0.2-1.3) mg/dL AST (14-36) U/L ALT (9-52) U/L Alkaline Phosphatase (38-126) U/L Ammonia < 9 L (9-33) umol/L Total Protein (6.3-8.3) g/dL Albumin (3.5-5.0) g/dL Globulin (2.2-3.9) gm/dL Albumin/Globulin Ratio (1.0-2.1) Digoxin 3.7 H* (0.8-2.0) ng/mL Salicylates < 1.0 mg/dL 1 Acetaminophen < 10.0 L (10.0-30.0) ug/mL Valproic Acid 156.4 H (50.0-100.0) ug/mL 02/04/18 Range/Units 15:43 WBC (4.8-10.8) K/uL RBC (3.80-5.20) Mil/uL Hgb (11.0-16.0) g/dL Hct (34.0-47.0) % MCV (81.0-99.0) fL MCH (27.0-31.0) pg MCHC (33.0-37.0) g/dL RDW (11.5-14.5) % Plt Count (130-400) K/uL MPV (7.2-11.7) fL Neut % (Auto) (50.0-75.0) % Lymph % (Auto) (20.0-40.0) % [place] % (Auto) (0.0-10.0) % Eos % (Auto) (0.0-4.0) % Baso % (Auto) (0.0-2.0) % Neut # (Auto) (1.8-7.0) K/uL Lymph # (Auto) (1.0-4.3) K/uL [place] # (Auto) (0.0-0.8) K/uL Eos # (Auto) (0.0-0.7) K/uL Baso # (Auto) (0.0-0.2) K/uL Sodium (132-148) mmol/L Potassium (3.6-5.2) mmol/L Chloride (98-107) mmol/L Carbon Dioxide (22-30) mmol/L Anion Gap (10-20) BUN (7-17) mg/dL Creatinine (0.7-1.2) mg/dL Est GFR ( Amer) Est GFR (Non-Af Amer) Random Glucose (65-105) mg/dL Calcium (8.6-10.4) mg/dl Total Bilirubin (0.2-1.3) mg/dL AST (14-36) U/L ALT (9-52) U/L Alkaline Phosphatase (38-126) U/L Ammonia (9-33) umol/L Total Protein (6.3-8.3) g/dL Albumin (3.5-5.0) g/dL Globulin (2.2-3.9) gm/dL Albumin/Globulin Ratio (1.0-2.1) Digoxin 3.9 H* (0.8-2.0) ng/mL Salicylates mg/dL 1 Acetaminophen (10.0-30.0) ug/mL Valproic Acid (50.0-100.0) ug/mL Laboratory Results - last 24 hr 02/04/18 02/04/18 02/04/18 15:43 21:47 21:47 WBC RBC Hgb Hct MCV MCH MCHC RDW Plt Count MPV Neut % (Auto) Lymph % (Auto) [place] % (Auto) Eos % (Auto) Baso % (Auto) Neut # (Auto) Lymph # (Auto) [place] # (Auto) Eos # (Auto) Baso # (Auto) Sodium 136 Potassium 4.7 Chloride 101 Carbon Dioxide 22 Anion Gap 18 BUN 3 L Creatinine 0.6 L Est GFR ( Amer) > 60 Est GFR (Non-Af Amer) > 60 Random Glucose 150 H Calcium 9.3 Total Bilirubin AST ALT Alkaline Phosphatase Ammonia Total Protein Albumin Globulin Albumin/Globulin Ratio Digoxin 3.9 H* 3.7 H* Salicylates < 1.0 Acetaminophen < 10.0 L Valproic Acid 156.4 H 02/04/18 02/05/18 02/05/18 21:47 06:55 06:55 WBC 5.8 RBC 4.12 Hgb 11.7 Hct 35.2 MCV 85.3 MCH 28.4 MCHC 33.3 RDW 13.6 Plt Count 246 MPV 8.5 Neut % (Auto) 62.0 Lymph % (Auto) 28.4 [place] % (Auto) 5.6 Eos % (Auto) 3.5 Baso % (Auto) 0.5 Neut # (Auto) 3.6 Lymph # (Auto) 1.6 [place] # (Auto) 0.3 Eos # (Auto) 0.2 Baso # (Auto) 0.0 Sodium 137 Potassium 4.6 Chloride 99 Carbon Dioxide 26 Anion Gap 16 BUN 5 L Creatinine 0.6 L Est GFR ( Amer) > 60 Est GFR (Non-Af Amer) > 60 Random Glucose 145 H Calcium 9.3 Total Bilirubin 0.4 AST 32 ALT 28 Alkaline Phosphatase 66 Ammonia < 9 L Total Protein 7.2 Albumin 4.1 Globulin 3.1 Albumin/Globulin Ratio 1.3 Digoxin Salicylates Acetaminophen Valproic Acid 02/05/18 13:11 WBC RBC Hgb Hct MCV MCH MCHC RDW Plt Count MPV Neut % (Auto) Lymph % (Auto) [place] % (Auto) Eos % (Auto) Baso % (Auto) Neut # (Auto) Lymph # (Auto) [place] # (Auto) Eos # (Auto) Baso # (Auto) Sodium Potassium Chloride Carbon Dioxide Anion Gap BUN Creatinine Est GFR ( Amer) Est GFR (Non-Af Amer) Random Glucose Calcium Total Bilirubin AST ALT Alkaline Phosphatase Ammonia Total Protein Albumin Globulin Albumin/Globulin Ratio Digoxin 2.7 H* Salicylates Acetaminophen Valproic Acid 83.1 EKG/Cardiology Studies: Cardiology / EKG Studies 02/04/18 18:06 EKG [ELECTROCARDIOGRAM] Stat Comment: Mode Of Transportation: BED Reason For Exam: cp 02/05/18 10:11 EKG [ELECTROCARDIOGRAM] Routine Comment: Mode Of Transportation: Reason For Exam: overdose 02/06/18 21:15 ELECTROCARDIOGRAM DAILY Comment: Mode Of Transportation: PORTABLE Reason For Exam: f/u dig toxicity PERFORMING PHYSICIAN/PROVIDER:: Marcia Valles I 02/07/18 21:15 ELECTROCARDIOGRAM DAILY Comment: Mode Of Transportation: PORTABLE Reason For Exam: f/u dig toxicity PERFORMING PHYSICIAN/PROVIDER:: Marcia Valles I Critical Care Progress Note - Nutrition Nutrition: Nutrition Category Date Time Status Heart Healthy Diet [DIET] Diets 02/05/18 Breakfast Active Attending/Attestation - Attestation I have personally seen and examined this patient.: Yes I have fully participated in the care of the patient.: Yes I have reviewed all pertinent clinical information: Yes Notes (Text): 02/05/18 17:46 Today: Saturday, August 12, 2017 The Patient was seen and examined at the bedside, Medical records reviewed, and management issues were discussed and formulated with the house staff. I have reviewed all the relevant clinical, laboratory, hemodynamic, radiographic data and medications Events reviewed Pain issues, skin care, head of the bed elevation, glycemic control were addressed. Agree with above resident's assessment and treatment plans of care as transcribed in Dr. Hall's note.
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
[2018-02-05] MEDS: Divalproex 500 mg DR Tab PO SCH (18:22)
[2018-02-06] MEDS: Sodium Chloride 0.9% 1,000 ML IV SCH ×2 (00:30→14:12)
[2018-02-06 08:33] VITALS: RESP 20
--- NOTE | 2018-02-06 09:46 | CP.PCM.HP ---
History of Present Illness - History of Present Illness History of Present Illness: pt came in overdose suicidal to icu yesterday today denied any medical issu only wants to Present on Admission - Present on Admission Any Indicators Present on Admission: No Past Patient History - Past Medical History & Family History Past Medical History?: Yes - Past Social History Smoking Status: Smoker Currrent Status Unknown - MUSCULOSKELETAL/RHEUMATOLOGICAL Hx Falls: No - PSYCHIATRIC Hx Bipolar Disorder: Yes Hx Substance Use: No Meds Allergies/Adverse Reactions: Allergies Allergy/AdvReac Type Severity Reaction Status Date / Time metoclopramide [From Reglan] Allergy Verified 02/04/18 15:28 Physical Exam - Constitutional Appears: Non-toxic - Head Exam Head Exam: NORMAL INSPECTION - Eye Exam Eye Exam: Normal appearance Pupil Exam: NORMAL ACCOMODATION - ENT Exam ENT Exam: Normal Exam - Neck Exam Neck exam: Positive for: Normal Inspection - Respiratory Exam Respiratory Exam: Clear to Auscultation Bilateral - Cardiovascular Exam Cardiovascular Exam: REGULAR RHYTHM - GI/Abdominal Exam GI & Abdominal Exam: Normal Bowel Sounds - Extremities Exam Extremities exam: Positive for: normal inspection Results - Vital Signs Recent Vital Signs: Last Vital Signs Temp 98 F 02/06/18 08:15 Pulse 85 02/06/18 08:15 Resp 20 02/06/18 08:15 BP 109/66 02/06/18 08:15 Pulse Ox 98 02/06/18 08:15 - Labs Result Diagrams: 02/05/18 06:55 02/05/18 06:55 Labs: Laboratory Results - last 24 hr 02/05/18 13:11 Digoxin 2.7 H* Valproic Acid 83.1 Assessment & Plan - Assessment and Plan (Free Text) Assessment: pt susidal overdose vss medicaly cleare to transfer to psych ucooperative refused lab Plan: transfer to psych stable medicaly - Date & Time Date: 02/06/18 Time: 09:46
[2018-02-06] MEDS: Divalproex 500 mg DR Tab PO SCH ×2 (10:00→11:30)
--- NOTE | 2018-02-06 11:57 | CARD ---
APPROVED REPORT Date of service: 02/05/2018 EKG Measurement Heart [id number] <Conclusion> Sinus tachycardia ST & T wave abnormality, consider inferior ischemia Abnormal ECG
--- NOTE | 2018-02-06 11:58 | CARD ---
APPROVED REPORT Date of service: 02/04/2018 EKG Measurement Heart [id number] <Conclusion> Sinus tachycardia ST & T wave abnormality, consider anterior ischemia Abnormal ECG
[2018-02-06 16:08] VITALS: BP 123/75; PULSE 114; TEMP 98.3
--- NOTE | 2018-02-06 16:40 | PCM.PYCHPN ---
Psychiatric Progress Note - Psychiatric Progress Note Patient seen today, length of contact: 15 min Patient Chief Complaint: I had a fight with my mother. ' Medication Change: Yes Medical Record Reviewed: Yes Mental Status Examination - Cognitive Function Orientation: Person, Place, Situation, Time - Mood Mood: Anxious - Affect Affect: Broad - Formal Thought Process Formal Thought Process: Delusions, Paranoia, Flight of ideas Goal/Treatment Plan - Goal/Treatment Plan Progress Toward Problem(s) and Goals/Treatment Plan: bipolar 1 disorder mixed severe with psychotic Rule out schizoaffective disorder bipolar type start Klonopin Start Haldol Start Depakote Patient to be screened by [facility] for involuntary commitment
[2018-02-06] MEDS ORDERED: DiphenhydrAMINE 50 mg/ml Inj IM STA (18:04)
--- NOTE | 2018-02-06 18:45 | CP.PCM.PCO ---
Physician Communication Note - Physician Communication Note Physician Communication Note: Patient combative - spoke with Dr. Mahoney, recommended Geodon 20mg +restrain
[2018-02-08 23:43] VITALS: O2SAT 95
== END 2018-02-06 18:50 | disposition short-term general hospital (02) | DRG 918 ==
LOC: C.ER 15:17 → C.9E 19:07 → C.9I 20:15 → C.5S 02-06 07:53
PROVIDERS: ADMIT Internal Medicine; ATTEND Internal Medicine
DX: T46.0X Poisoning by, adverse effect of and underdosing of cardiac-stimulant glycosides and drugs of similar action (principal); F31.64 Bipolar disorder, current episode mixed, severe, with psychotic features; T42.6X2A Poisoning by other antiepileptic and sedative-hypnotic drugs, intentional self-harm, initial encounter; T42.4X2A Poisoning by benzodiazepines, intentional self-harm, initial encounter; R11.10 Vomiting, unspecified; F60.9 Personality disorder, unspecified; R00.0 Tachycardia, unspecified; E66.9 Obesity, unspecified; Z91.19 Patient's noncompliance with other medical treatment and regimen; Z91.5 Personal history of self-harm; Z91.14 Patient's other noncompliance with medication regimen